=== PATIENT | male | born 1965 | race American Indian/Alaskan Native ===

== ENCOUNTER 2018-07-18 15:49 | Emergency (ER) | payer OTHER ==
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
--- NOTE | 2018-07-18 18:59 | XRay Report ---
PROCEDURE: XR SPINE LUMBOSACRAL 2-3V TECHNIQUE: Lumbar spine radiographs, frontal and lateral views HISTORY: pain COMPARISONS: None FINDINGS: Slight spinal curvature with right apex at thoracolumbar junction. Developmental variation with 6 lumbar type vertebrae. Vertebral compression fracture: None Anterolisthesis: None Retrolisthesis: None Disc narrowing: L5 6 slight, L6 S1 slight Degenerative change: Multilevel at the vertebral endplates and facet joints IMPRESSION: No radiographic evidence of definite acute skeletal pathology Spinal curvature with right apex and thoracic lumbar junction Developmental variation with 6 lumbar type vertebrae Multilevel degenerative change and disc narrowing This document is electronically signed by Srinivas Jones MD., Jul 18 2018 06:57:36 PM ET
[2018-07-18] MEDS ORDERED: TYLENOL PO ONE (19:17)
[2018-07-18] MEDS ORDERED: TYLENOL ONE (19:17)
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
[2018-07-18 21:13] VITALS: BP 160/97
== END 2018-07-18 21:14 | disposition home or self-care (01) ==
LOC: ED 15:49
DX: S39.012A Strain of muscle, fascia and tendon of lower back, initial encounter (principal); V43.52XA Car driver injured in collision with other type car in traffic accident, initial encounter; Y93.89 Activity, other specified; Y92.488 Other paved roadways as the place of occurrence of the external cause; Y99.8 Other external cause status
CPT/HCPCS: 72100; 99283